=== PATIENT | female | born 1990 ===

== ENCOUNTER 2018-10-11 18:34 | Emergency (ER) | payer MEDICAID, OTHER ==
[2018-10-11 18:38] VITALS: BMI 28.1
[2018-10-11 18:40] VITALS: BP 116/75; PULSE 65; RESP 17; TEMP 98.6; O2SAT 100
[2018-10-11] MEDS ORDERED: Lidocaine 2% Inj (20ml) INFIL ONE (19:58)
[2018-10-11] MEDS ORDERED: Lidocaine 2% PF (10 ml) Amp EPI ONE (20:15)
[2018-10-11] MEDS ORDERED: Bacitracin 500 Units/gm Oint Foilpak UD ONE (21:07)
--- NOTE | 2018-10-11 21:16 | C.PDOC ---
History Of Present Illness 28 year old female presents to the ED requesting removal of FB to her lower back. Patient reports having piercings to her lower back, jewelry now embedded in her skin. Patient denies fever, chills, rash, other medical complaints. Time Seen by Provider: 10/11/18 19:26 Chief Complaint (Nursing): Foreign Body History Per: Patient History/Exam Limitations: no limitations Onset/Duration Of Symptoms: Days Current Symptoms Are (Timing): Still Present Location Of Injury: Right: Back (lower), Left: Back Quality Of Symptoms: Painful Recent travel outside of the [place]: No Additional History Per: Patient Past Medical History Reviewed: Historical Data, Nursing Documentation, Vital Signs Vital Signs: Last Vital Signs Temp 98.6 F 10/11/18 18:39 Pulse 65 10/11/18 18:39 Resp 17 10/11/18 18:39 BP 116/75 10/11/18 18:39 Pulse Ox 100 10/11/18 18:39 - Medical History PMH: No Chronic Diseases Denies: Depression Surgical History: No Surg Hx - [facility] Procedures DELIVERY OF PRODUCTS OF CONCEPTION, EXTERNAL APPROACH (05/26/16) MONITORING OF POC, CARDIAC RATE, VALET ATTENDANT APPROACH (05/26/16) REPAIR PERINEUM MUSCLE, OPEN APPROACH (05/26/16) Family History: States: Unknown Family Hx - Social History Hx Tobacco Use: No Hx Alcohol Use: Yes Hx Substance Use: No - Immunization History Hx Tetanus Toxoid Vaccination: No Hx Influenza Vaccination: No Hx Pneumococcal Vaccination: No Review Of Systems Constitutional: Negative for: Fever, Chills Cardiovascular: Negative for: Chest Pain Respiratory: Negative for: Shortness of Breath Gastrointestinal: Negative for: Nausea, Vomiting, Abdominal Pain Musculoskeletal: Positive for: Back Pain Skin: Positive for: Other (lower back piercings) Neurological: Negative for: Weakness, Numbness, Headache Physical Exam - Physical Exam Appears: Non-toxic, No Acute Distress Skin: Normal Color, Warm, Dry Head: Atraumatic, Normacephalic Eye(s): bilateral: Normal Inspection Neck: Normal ROM, Supple Back: No Vertebral Tenderness, Other (2 FB-piercings visualized on lumbar spine, left sided piercing through skin, right sided completely embedded. No erythema, swelling, induration, fluctuance) Extremity: Normal ROM, No Tenderness, No Swelling Neurological/Psych: Oriented x3, Normal Speech, Normal Cognition Gait: Steady ED Course And Treatment O2 Sat by Pulse Oximetry: 100 (ON RA) Pulse Ox Interpretation: Normal Progress Note: Small incision done on lower back lumbar spine region. Removed 2 piercings from site with minimal bleeding. Patient tolerated the procedure well. Site was closed with x2 suture of 4-0 nylon. Patient was instructed in proper wound care and to follow up for suture removal. Return precautions explained. Laceration - Laceration Repair lower back Wound Length (In cm): 0.5 Description Of Wound: Linear (x 2 small lacerations) Wound Cleansed With: Betadine, Sterile Saline Anesthesia: Lidocaine 1%, With Epi Wound Examination: Irrigated With Saline, No FB With Wound Exploration Wound Closure: Suture (x2 ) Suture Technique And Material Used: Nylon (4-o) Wound Complexity: Simple Disposition - Disposition Disposition: HOME/ ROUTINE Disposition Time: 21:13 Condition: STABLE Additional Instructions: Wound care as instructed Suture removal in 1 week Return to ER if any concerns Instructions: Foreign Body in Skin (DC) Forms: [employer] (Bermudian) - Clinical Impression Clinical Impression: Foreign body of skin of back - PA / [employer] / Resident Statement MD/DO has reviewed & agrees with the documentation as recorded. - Scribe Statement The provider has reviewed the documentation as recorded by the Scribe Terell Julio All medical record entries made by the Scribe were at my direction and personally dictated by me. I have reviewed the chart and agree that the record accurately reflects my personal performance of the history, physical exam, medical decision making, and the department course for this patient. I have also personally directed, reviewed, and agree with the discharge instructions and disposition.
== END 2018-10-11 21:18 | disposition home or self-care (01) ==
LOC: C.ER 18:34
DX: S30.850A Superficial foreign body of lower back and pelvis, initial encounter (principal); X58.XXXA Exposure to other specified factors, initial encounter